=== PATIENT | female | born 1985 | race Caucasian/White ===

== ENCOUNTER 2020-08-13 13:45 | Emergency (ER) | payer MEDICAID ==
[~2020-08-13] VITALS: Ht 157.5 cm; Wt 62.6 kg
[2020-08-13] MEDS ORDERED: ONDANSETRON HCL/PF 4 MG/2 ML VIAL ONE (14:07)
[2020-08-13] MEDS: ONDANSETRON HCL/PF 4 MG/2 ML VIAL IVP ONE (14:10)
[2020-08-13] MEDS: IV NS 0.9% 1,000 ML BAG IV ONE (14:10)
--- NOTE | 2020-08-13 14:12 | NUR ---
Patient came in to the er c/o RUQ pain radiating to lower back x 3 days. On room air, breathing evenly and unlabored. connected to the monitor and pulse ox. Ambulatory with steady gait. IV access initiated and blood drawned and sent to lab. Urine collected and sent to lab. Kept comfortable, will continue to monitor accordingly.
[2020-08-13 14:13] LABS: BASOPHILS % (AUTO) 0.6 % (0.0-2.0); EOSINOPHILS % (AUTO) 1.4 % (0.0-6.0); HEMATOCRIT 44 % (33-45); HEMOGLOBIN 14.4 g/dL (11.5-14.8); LYMPHOCYTES # (AUTO) 1.6 /CMM (0.8-4.8); LYMPHOCYTES % (AUTO) 40.7 % (20.0-44.0); MEAN CORPUSCULAR HGB CONC 33 g/dl (31.0-36.0); MEAN CORPUSCULAR VOLUME 91 fL (82-100); MONOCYTES # (AUTO) 0.2 /CMM (0.1-1.30); MONOCYTES % (AUTO) 6.3 % (2.0-12.0); PLATELET COUNT (AUTO) 252 /CMM (150-450); RED BLOOD CELL COUNT(AUTO) 4.79 MIL/uL (4.0-5.2)
[2020-08-13 14:22] LABS: APPEARANCE,URINE CLEAR (CLEAR); BILIRUBIN,URINE NEGATIVE (NEGATIVE); BLOOD, URINE TRACE-INTA Ery/uL (NEGATIVE); COLOR,URINE YELLOW (YELLOW); KETONES,URINE 40 (NEGATIVE); LEUKOCYTE ESTERASE ,URINE NEGATIVE (NEGATIVE); NITRITE, URINE NEGATIVE (NEGATIVE); PROTEIN,URINE NEGATIVE (NEGATIVE); UGLUCOSE NEGATIVE (NEGATIVE); UROBILINOGEN,URINE 0.2 EU/dL (0.2)
[2020-08-13 14:25] LABS: CALCIUM, SERUM 9.4 mg/dL (8.5-10.1); CREATININE 0.8 mg/dL (0.6-1.3); POTASSIUM 3.8 mmol/L (3.5-5.1)
[2020-08-13 14:33] LABS: ALBUMIN 4.3 g/dL (3.4-5.0); BILIRUBIN,DIRECT 0.2 mg/dL (0.0-0.2); BILIRUBIN,TOTAL 0.7 mg/dL (0.2-1.0)
[2020-08-13 14:56] LABS: BACTERIA,URINE RARE /HPF (None Seen); RBC,URINE 0-2 /HPF (0-2); WBC,URINE 0-2 /HPF (0-3)
[2020-08-13] MEDS ORDERED: MORPHINE SULFATE INJ 4 MG/ML DISP.SYRIN ONE (16:27)
[2020-08-13] MEDS: MORPHINE SULFATE INJ 4 MG/ML DISP.SYRIN IV ONE (16:30)
--- NOTE | 2020-08-13 16:31 | NUR ---
MEDICATED PER ERMD ORDER, PT SUZANNA WELL. WILL CONT TO MONITOR.
[2020-08-13] MEDS ORDERED: IV NS 0.9% 250 ML IV ONE (17:29)
[2020-08-13] MEDS ORDERED: IOHEXOL-300 100 ML VIAL IV ONE (17:29)
--- NOTE | 2020-08-13 17:42 | NUR ---
PT TO CT VIA [facility].
--- NOTE | 2020-08-13 19:09 | NUR ---
Patient discharged to home in stable condition. Written and verbal after care instructions given. Patient verbalizes understanding of instruction. IV removed. Catheter intact and site benign. Pressure and 4x4 applied to site. No bleeding noted.
[2020-08-13 19:10] VITALS: BP 115/68
== END 2020-08-13 19:11 | disposition home or self-care (01) ==
LOC: ER 13:54
DX: R10.11 Right upper quadrant pain (principal); R11.0 Nausea; F17.200 Nicotine dependence, unspecified, uncomplicated; Z98.890 Other specified postprocedural states
CPT/HCPCS: 36415; 74177; 80048; 80076; 81001; 83690; 84703; 85025; 96361; 96374; 96375; 99285; J2270; J2405; J7030; J7050; Q9967; 81000-TC

== ENCOUNTER 2020-10-19 00:38 | Emergency (ER) | payer MEDICAID, OTHER ==
[~2020-10-19] VITALS: Ht 157.5 cm; Wt 59.0 kg
--- NOTE | 2020-10-19 00:55 | NUR ---
BIBSELF C/O GENERALIZED BODY ACHE X1 WEEK. AAOX4. AMBULATORY WITH STEADY GAIT. VSS. NO ACUTE DISTRESS. PENDING MD JONES
--- NOTE | 2020-10-19 00:57 | NUR ---
DR. BAHENA AT BEDSIDE FOR MEDICAL SCREENING EXAM
--- NOTE | 2020-10-19 01:10 | NUR ---
COVID SWAB COLLECTED AND SENT TO LAB
[2020-10-19] MEDS ORDERED: IBUPROFEN 400 MG TABLET ONE (01:12)
[2020-10-19] MEDS ORDERED: ONDANSETRON 4 MG TAB.RAPDIS ONE (01:13)
--- NOTE | 2020-10-19 01:18 | NUR ---
Patient discharged to home in stable condition. Written and verbal after care instructions given. Patient verbalizes understanding of instruction.Pt ambulatory with a steady gait
[2020-10-19 01:28] VITALS: BP 133/68
[2020-10-19] MEDS ORDERED: IBUPROFEN 400 MG TABLET PO ONE (01:30)
[2020-10-19] MEDS ORDERED: ONDANSETRON 4 MG TAB.RAPDIS SL ONE (01:30)
--- NOTE | 2020-10-20 10:21 | NUR ---
REICEVED CALL FROM LAB, PT IS COVID POSITIVE.
== END 2020-10-19 01:18 | disposition home or self-care (01) ==
LOC: ER 00:38
DX: U07.1 COVID-19 (principal); R11.0 Nausea
CPT/HCPCS: 99283; C9803; Q0162; U0003

== ENCOUNTER 2024-02-10 22:20 | Emergency (ER) | payer OTHER ==
[~2024-02-10] VITALS: Ht 160 cm; Wt 63.5 kg
[2024-02-10 22:50] VITALS: TEMP 98.5
[2024-02-10 23:21] LABS: APPEARANCE,URINE CLEAR (CLEAR); BILIRUBIN,URINE NEGATIVE (NEGATIVE); BLOOD, URINE NEGATIVE Ery/uL (NEGATIVE); COLOR,URINE YELLOW (YELLOW); KETONES,URINE NEGATIVE (NEGATIVE); LEUKOCYTE ESTERASE ,URINE NEGATIVE (NEGATIVE); NITRITE, URINE NEGATIVE (NEGATIVE); PROTEIN,URINE NEGATIVE (NEGATIVE); UGLUCOSE NEGATIVE (NEGATIVE); UROBILINOGEN,URINE 0.2 EU/dL (0.2)
[2024-02-10 23:23] LABS: PREGNANCY TEST URINE QUAL NEGATIVE (NEGATIVE)
[2024-02-10] MEDS: IV NS 0.9% 1,000 ML IV ONE (23:30)
[2024-02-10] MEDS ORDERED: diphenhydrAMINE HCL 50 MG/ML VIAL ONE (23:31)
[2024-02-10 23:34] LABS: AMPHETAMINE, URINE NEGATIVE (NEGATIVE); BARBITURATE, URINE NEGATIVE (NEGATIVE); BENZODIAZEPINE, URINE NEGATIVE (NEGATIVE); COCCAINE, URINE NEGATIVE (NEGATIVE); OPIATE, URINE NEGATIVE (NEGATIVE); PHENCYCLIDINE SCREEN,URINE NEGATIVE (NEGATIVE)
[2024-02-10] MEDS: diphenhydrAMINE HCL 50 MG/ML VIAL IV ONE (23:35)
[2024-02-10 23:37] LABS: CANNABINOID, URINE POSITIVE (NEGATIVE)
[2024-02-11 00:09] LABS: BASOPHILS % (AUTO) 0.2 % (0.0-2.0); EOSINOPHILS # (AUTO) 0.1 K/uL (0.0-0.7); EOSINOPHILS % (AUTO) 1.6 % (0.0-6.0); HEMATOCRIT 41 % (33-45); HEMOGLOBIN 13.7 g/dL (11.5-14.8); LYMPHOCYTES # (AUTO) 2.6 K/uL (0.8-4.8); LYMPHOCYTES % (AUTO) 37.5 % (20.0-44.0); MEAN CORPUSCULAR HEMOGLOBIN 30 PG (26.0-33.0); MEAN CORPUSCULAR HGB CONC 34 g/dl (31.0-36.0); MEAN CORPUSCULAR VOLUME 90 fL (82-100); MONOCYTES # (AUTO) 0.5 K/uL (0.1-1.30); MONOCYTES % (AUTO) 6.8 % (2.0-12.0); NEUTROPHILS # (AUTO) 3.8 K/uL (1.8-8.9); NEUTROPHILS % (AUTO) 53.9 % (43.0-81.0); PLATELET COUNT (AUTO) 246 K/uL (150-450); RED BLOOD CELL COUNT(AUTO) 4.51 MIL/uL (4.0-5.2); RED CELL DISTRIBUTION WIDTH 13.5 % (11.5-15.0)
[2024-02-11 00:27] LABS: CALCIUM, SERUM 9.1 mg/dL (8.5-10.1); CREATININE 0.6 mg/dL (0.6-1.3); POTASSIUM 3.8 mmol/L (3.5-5.1)
[2024-02-11 00:40] LABS: ALBUMIN 3.7 g/dL (3.4-5.0); BILIRUBIN,TOTAL 0.6 mg/dL (0.2-1.0); TOTAL PROTEIN, SERUM 7.4 g/dL (6.4-8.2)
[2024-02-11 01:59] VITALS: BP 131/89; O2SAT 98
== END 2024-02-11 02:00 | disposition home or self-care (01) ==
LOC: ER 22:23
DX: R06.02 Shortness of breath (principal); T45.2X5A Adverse effect of vitamins, initial encounter; F17.200 Nicotine dependence, unspecified, uncomplicated; Y92.89 Other specified places as the place of occurrence of the external cause
CPT/HCPCS: 99285; 96374; 71045; 96361; 93005; 85025; 84703; 36415; 80053; 84484; 83880; 80307; 81003; J1200; J7030